=== PATIENT | male | born 1960 | race Caucasian/White ===

== ENCOUNTER 2021-01-21 05:02 | Inpatient (IN) ==
[2021-01-21 05:40] LABS: Basophils # 0.1 K/mcL (0.0-0.2); Basophils % 0.4 %; Eosinophils # 0.5 K/mcL (0.0-0.6); Eosinophils % 3.3 %; Hematocrit 41.9 % (37.5-50.1); Hemoglobin 14.9 g/dL (12.9-16.9); Immature Granulocytes % 0.6 % (0-4); Lymphocytes # 2.1 K/mcL (0.6-4.6); Lymphocytes % 12.6 %; Mean Corpuscular HGB Conc 35.6 g/dL (31.6-35.5); Mean Corpuscular Hemoglobin 33.5 pg (28.0-33.3); Mean Corpuscular Volume 94.2 fL (83.0-100.0); Mean Platelet Volume 9.4 fL (9.4-12.4); Monocytes # 0.8 K/mcL (0.0-1.3); Monocytes % 4.6 %; Platelet Count 309 K/mcL (140-400); Red Blood Count 4.45 M/mcL (4.19-5.50); Red Cell Distribution Width 12.2 % (11.5-14.5); Segmented Neutrophils % 78.5 %; White Blood Count 16.6 K/mcL (4.3-11.1)
[2021-01-21 05:53] LABS: Amphetamine Screen,Urine Negative ng/mL (Cutoff=1000); Barbiturate Screen,Urine Negative ng/mL (Cutoff=200)
[2021-01-21 05:54] LABS: Benzodiazepines Screen,Urine Negative ng/mL (Cutoff=300); Cannabinoid Screen,Urine Positive ng/mL (Cutoff = 50); Cocaine Screen,Urine Negative ng/mL (Cutoff= 300); Opiate Screen,Urine Negative ng/mL (Cutoff=300); Phencyclidine Screen,Urine Negative ng/mL (Cutoff=25)
[2021-01-21 05:59] LABS: Acetaminophen < 10 mcg/mL (10-20); Alanine Aminotransferase 9 Units/L (7-52); Albumin 3.9 g/dL (3.5-5.7); Albumin/Globulin Ratio 1.5 (1.1-2.2); Alkaline Phosphatase 60 Units/L (34-104); Aspartate Amino Transferase 19 Units/L (13-39); BUN/Creatinine Ratio 6 (6-26); Bilirubin,Total 0.6 mg/dL (0.3-1.0); Blood Urea Nitrogen 8 mg/dL (6-20); Calcium 8.5 mg/dL (8.6-10.3); Carbon Dioxide 24 mEq/L (23-29); Chloride 91 mEq/L (98-107); Ethanol < 10 mg/dL (Less than 10); Globulin 2.6 g/dL (2.4-3.5); Glucose 145 mg/dL (70-105); Osmolality,Calculated 263 (280-300); Salicylate < 2.5 mg/dL (15.0-30.0); Sodium 126 mEq/L (136-145); Total Protein 6.5 g/dL (6.4-8.9); Troponin I < 0.03 ng/mL (< 0.04); eGFR For African Americans > 60 (> 60); eGFR For Non-African Americans 60 (> 60)
[2021-01-21] MEDS ORDERED: Potassium Effervescent 25 MEQ TABLET.EFF PO ONE (06:32)
[2021-01-21 07:01] LABS: Bilirubin,Urine Negative (Negative); Blood,Urine Moderate (Negative); Clarity,Urine Clear (Clear); Color,Urine Light-Yellow (Yellow); Glucose,Urine (UA) Normal (Normal); Hyaline Casts,Urine Few per lpf (None Seen); Ketones,Urine Trace mg/dL (Negative); Leukocyte Esterase,Urine Negative (Negative); Mucus,Urine Few per lpf (None-Few); Nitrite,Urine Negative (Negative); Protein,Urine >=300 mg/dL (Neg-Trace); Specific Gravity,Urine 1.018 (1.010-1.025); Urobilinogen,Urine Normal (Normal); WBC,Urine 0-3 per hpf (0-3)
[2021-01-21] MEDS ORDERED: levETIRAcetam 1,000 MG in 0.9 % Sodium Chloride 100 ML IVPB ONE (07:12)
[2021-01-21] MEDS ORDERED: 0.9 % Sodium Chloride 1,000 ML ONE (07:24)
[2021-01-21] MEDS ORDERED: Naloxone 0.4 MG/ML INJ IVP PRN (07:39)
[2021-01-21 08:03] LABS: Magnesium 1.5 mg/dL (1.6-2.6)
[2021-01-21] MEDS: atenoloL 50 MG TABLET PO SCH (08:25)
[2021-01-21] MEDS: Lisinopril-HCTZ 20-12.5mg TABLET PO SCH (08:25)
[2021-01-21 09:16] LABS: Estimated Average Glucose 120 mg/dl; Hemoglobin A1C 5.8 %
[2021-01-21] MEDS ORDERED: Ondansetron 4 MG/2 ML VIAL IVP PRN (11:40)
[2021-01-21] MEDS ORDERED: Gadolinium Contrast Agent (WT Based) IV PRN (11:41)
[2021-01-21] MEDS: Acetaminophen 325 MG TABLET PO PRN (11:52)
[2021-01-21] MEDS ORDERED: *HR* LORazepam 2 MG/ML VIAL IVP ONE (15:33)
[2021-01-21] MEDS: Nicotine 7 MG PATCH.TD24 TD SCH (16:17)
[2021-01-21] MEDS: Divalproex (24 HR) 500 MG TABLET PO SCH (21:10)
[2021-01-21] MEDS: Mirtazapine 15 MG TABLET PO SCH (21:10)
[2021-01-22 03:21] LABS: Hematocrit 39.8 % (37.5-50.1); Mean Corpuscular HGB Conc 35.2 g/dL (31.6-35.5); Mean Corpuscular Hemoglobin 32.9 pg (28.0-33.3); Mean Corpuscular Volume 93.4 fL (83.0-100.0); Mean Platelet Volume 9.7 fL (9.4-12.4); Platelet Count 300 K/mcL (140-400); Red Blood Count 4.26 M/mcL (4.19-5.50); Red Cell Distribution Width 12.3 % (11.5-14.5); White Blood Count 13.3 K/mcL (4.3-11.1)
[2021-01-22 03:49] LABS: BUN/Creatinine Ratio 6 (6-26); Blood Urea Nitrogen 6 mg/dL (6-20); Calcium 8.2 mg/dL (8.6-10.3); Carbon Dioxide 27 mEq/L (23-29); Chloride 95 mEq/L (98-107); Glucose 106 mg/dL (70-105); Osmolality,Calculated 266 (280-300); Potassium 2.8 mEq/L (3.5-5.1); Sodium 129 mEq/L (136-145); eGFR For African Americans > 60 (> 60); eGFR For Non-African Americans > 60 (> 60)
[2021-01-22] MEDS: Lisinopril-HCTZ 20-12.5mg TABLET PO SCH (06:55)
[2021-01-22 08:24] LABS: Magnesium 1.6 mg/dL (1.6-2.6)
[2021-01-22] MEDS: Nicotine 7 MG PATCH.TD24 TD SCH (08:42)
[2021-01-22] MEDS: atenoloL 50 MG TABLET PO SCH (08:49)
[2021-01-22] MEDS ORDERED: lisinopriL 20 MG TABLET PO SCH (09:00)
[2021-01-22] MEDS ORDERED: Potassium Chloride 40 MEQ, Lidocaine 1% 2 ML in 0.9 % Sodium Chloride 500 ML IVPB ONE (09:00)
[2021-01-22 16:04] LABS: BUN/Creatinine Ratio 6 (6-26); Blood Urea Nitrogen 7 mg/dL (6-20); Calcium 8.4 mg/dL (8.6-10.3); Carbon Dioxide 30 mEq/L (23-29); Chloride 94 mEq/L (98-107); Glucose 111 mg/dL (70-105); Osmolality,Calculated 269 (280-300); Potassium 3.6 mEq/L (3.5-5.1); Sodium 130 mEq/L (136-145); eGFR For African Americans > 60 (> 60); eGFR For Non-African Americans > 60 (> 60)
[2021-01-22] MEDS ORDERED: lisinopriL 20 MG TABLET PO ONE (18:29)
[2021-01-22] MEDS: Mirtazapine 15 MG TABLET PO SCH (21:53)
[2021-01-22] MEDS: Divalproex (24 HR) 500 MG TABLET PO SCH (21:53)
[2021-01-23 01:54] LABS: Hematocrit 42.2 % (37.5-50.1); Hemoglobin 14.8 g/dL (12.9-16.9); Mean Corpuscular HGB Conc 35.1 g/dL (31.6-35.5); Mean Corpuscular Hemoglobin 32.8 pg (28.0-33.3); Mean Corpuscular Volume 93.6 fL (83.0-100.0); Mean Platelet Volume 9.8 fL (9.4-12.4); Platelet Count 306 K/mcL (140-400); Red Blood Count 4.51 M/mcL (4.19-5.50); Red Cell Distribution Width 12.3 % (11.5-14.5); White Blood Count 13.2 K/mcL (4.3-11.1)
[2021-01-23 02:23] LABS: BUN/Creatinine Ratio 8 (6-26); Blood Urea Nitrogen 8 mg/dL (6-20); Calcium 8.2 mg/dL (8.6-10.3); Carbon Dioxide 25 mEq/L (23-29); Chloride 95 mEq/L (98-107); Glucose 96 mg/dL (70-105); Magnesium 1.7 mg/dL (1.6-2.6); Osmolality,Calculated 264 (280-300); Potassium 3.1 mEq/L (3.5-5.1); Sodium 128 mEq/L (136-145); eGFR For African Americans > 60 (> 60); eGFR For Non-African Americans > 60 (> 60)
[2021-01-23] MEDS: atenoloL 50 MG TABLET PO SCH (07:36)
[2021-01-23] MEDS: lisinopriL 20 MG TABLET PO SCH (07:36)
[2021-01-23] MEDS: Nicotine 7 MG PATCH.TD24 TD SCH (07:36)
[2021-01-23] MEDS: Divalproex (24 HR) 500 MG TABLET PO SCH (19:50)
[2021-01-23] MEDS: Mirtazapine 15 MG TABLET PO SCH (19:50)
[2021-01-23] MEDS ORDERED: *HR* Metoprolol 5 MG/5 ML VIAL IVP ONE (20:59)
[2021-01-23] MEDS: Acetaminophen 325 MG TABLET PO PRN (21:48)
[2021-01-24] MEDS: Nicotine 7 MG PATCH.TD24 TD SCH (06:46)
[2021-01-24 07:11] LABS: Thyroid Stimulating Hormone 5.952 mcIU/mL (0.340-5.600)
[2021-01-24 07:31] LABS: BUN/Creatinine Ratio 9 (6-26); Blood Urea Nitrogen 10 mg/dL (6-20); Carbon Dioxide 25 mEq/L (23-29); Chloride 98 mEq/L (98-107); Glucose 109 mg/dL (70-105); Osmolality,Calculated 272 (280-300); Potassium 4.5 mEq/L (3.5-5.1); Sodium 131 mEq/L (136-145); eGFR For African Americans > 60 (> 60); eGFR For Non-African Americans > 60 (> 60)
[2021-01-24] MEDS: lisinopriL 20 MG TABLET PO SCH (07:59)
[2021-01-24] MEDS: atenoloL 50 MG TABLET PO SCH (07:59)
[2021-01-24] MEDS: amLODIPine 5 MG TABLET PO SCH (11:03)
[2021-01-24] MEDS: Acetaminophen 325 MG TABLET PO PRN ×2 (11:38→20:41)
[2021-01-24] MEDS ORDERED: Ketorolac 30 MG/ML VIAL IVP ONE (13:13)
[2021-01-24] MEDS: Mirtazapine 15 MG TABLET PO SCH (19:07)
[2021-01-24] MEDS: Divalproex (24 HR) 500 MG TABLET PO SCH (19:07)
[2021-01-25] MEDS: Nicotine 7 MG PATCH.TD24 TD SCH (06:57)
[2021-01-25] MEDS: amLODIPine 5 MG TABLET PO SCH (10:10)
[2021-01-25] MEDS: atenoloL 50 MG TABLET PO SCH (10:11)
[2021-01-25] MEDS: lisinopriL 20 MG TABLET PO SCH (10:11)
[2021-01-25 11:23] VITALS: BP 160/90
== END 2021-01-25 12:52 | disposition home or self-care (01) | DRG 101 ==
LOC: 3BNU 05:02 → EMEROOARM 05:02 → SUATTDRO 07:57 → 3BNU 09:10 → SUATTDRO 01-23 14:49
PROVIDERS: ADMIT Internal Medicine; ATTEND Nurse Practitioner